=== PATIENT | female | born 1970 | race Caucasian/White ===

== ENCOUNTER 2016-07-23 12:06 | Inpatient (IN) | payer OTHER ==
--- NOTE | ~2016-07-23 | DS ---
Unit #: [id number] #: [id number] Patient: CAROL KEBEDE [id number] [place] [address] [id number] I MR#: [id number] NAME: CAROL KEBEDE ROOM: P179 Age: 45 Sex: F Admission Date: 07/23/2016 : 1970 Discharge Date: 07/25/2016 Attending Physician: Gm Quintanilla M.D. Primary Care Physician: Generic Doctor Not In System DISCHARGE SUMMARY REASON FOR ADMISSION Carol is a 45-year-old woman with a history of bipolar disorder and polysubstance dependence. She reported running out of her medication and had overused a prescription of hydrocodone. She also has a history of pseudoseizures, which she presented in the emergency room. She was unable to contract for safety and admitted for stabilization. DIAGNOSTIC STUDIES LABORATORY RESULTS: Beta-hCG was negative. CMP was clinically unremarkable. CBC demonstrated high eosinophils of 15.4%. HOSPITAL COURSE Carol was admitted and placed on suicide precautions. Seroquel 400 mg at bedtime was restarted together with lamotrigine, meloxicam, benzoate, and lidocaine patch. Her pain medicine was discontinued. The patient was somewhat labile and quite med seeking while on the unit, with several episodes of pseudoseizure activity. She did not require seizure precautions. She participated briefly in psychotherapy groups and activities. On the date of discharge, she reported a "family emergency" related to her boyfriend and was able to contract for safety. DISCHARGE DIAGNOSES AXIS I: Bipolar depressed, F31.4; opioid dependence; polysubstance dependence. AXIS II: Borderline personality disorder. AXIS III: Hepatitis C. AXIS IV: AXIS V: DISCHARGE INSTRUCTIONS The patient to follow up with the [facility]. DISCHARGE MEDICATIONS Lamictal 100 mg daily for mood stability, Seroquel 400 mg at bedtime for mood stability, trazodone 50 mg at bedtime as needed for insomnia, Neurontin 600 mg t.i.d. for anxiety. Other medications were meloxicam 50 mg daily for pain and benzoate to completion for an infection. CONDITION AT DISCHARGE Fair. PROGNOSIS Unit #: [id number] #: [id number] Patient: CAROL KEBEDE Jossue. DIET AND ACTIVITY Per primary care doctor. Dictated by... Kamron Irvin/shani TD: 07/26/2016 03:43 JOB #: [id number] DISCHARGE SUMMARY Page 1 of 1 X Gm Quintanilla MD X DISCHARGE SUMMARY
--- NOTE | ~2016-07-23 | HP ---
Unit #: [id number] #: [id number] Patient: CAROL KEBEDE [id number] [place] [address] [id number] I MR#: [id number] NAME: CAROL KEBEDE ROOM: P179 Age: 45 Sex: F Admission Date: 07/23/2016 : 1970 Attending Physician: Gm Quintanilla M.D. Admitting Physician: Gm Quintanilla M.D. Primary Care Physician: Tk Doctor Not In System HISTORY AND PHYSICAL History and physical completed on 07/23/2016. HISTORY OF PRESENT ILLNESS Carol is a 45-year-old female, admitted to [facility] on 07/23/2016 for suicidal ideation and detox from opiates. PAST MEDICAL HISTORY Hepatitis C. PAST SURGICAL HISTORY None. SOCIAL HISTORY She smokes one half pack of cigarettes daily. She has a history of alcohol and drug abuse; however, she denies this for the past several months. She has been taking hydrocodone 5 mg t.i.d. She is currently single and living with her fiance and ex-. FAMILY MEDICAL HISTORY Noncontributory. REVIEW OF SYSTEMS CONSTITUTIONAL: No fever or chills. HEENT: Denies any sore throat, ear pain or runny nose. CARDIOVASCULAR: Denies chest pain, irregular heart rhythm or palpitations. CHEST: Denies shortness of breath or cough. No hemoptysis. GASTROINTESTINAL: Denies nausea, vomiting, diarrhea or chronic constipation. ENDOCRINE: Denies history of increased thirst or urination. No recent significant weight loss or gain. GENITOURINARY: Denies dysuria, frequency, or hematuria. SKIN: Denies any rashes. HEMATOLOGIC: Denies history of increased bleeding or bruising. MUSCULOSKELETAL: Denies any hot, swollen joints. No generalized muscle pain. NEUROLOGIC: Denies problems with vision or speech. No frequent, severe headaches. No numbness, tingling or weakness in any extremities. Denies loss of bladder or bowel control. CURRENT MEDICATIONS 1. Lamictal 2. Meloxicam 3. Lidocaine patch Unit #: [id number] #: [id number] Patient: CAROL KEBEDE 4. Benzonatate ALLERGIES Ceftin. PHYSICAL EXAMINATION GENERAL: Alert, oriented, and in no acute distress. VITAL SIGNS: Blood pressure 120/78, heart rate 105, respirations 18, and temperature 97.3. SKIN: Warm and dry without rash or lesion. HEENT: Normocephalic. TMs not viewed. Oral and nasal passages clear. Conjunctivae clear. PERRLA. EOMs intact. NECK: Supple without lymphadenopathy or thyromegaly. HEART: Regular rate and rhythm without murmur. LUNGS: Clear. ABDOMEN: Soft, nontender. : Not done. EXTREMITIES: No evidence of cyanosis, clubbing or edema. Moves all without focal deficit. NEUROLOGICAL: Grossly within normal limits. Cranial Nerves: II: Visual coker are intact. III, IV AND : Extraocular movements are intact. Pupils are equal, round and reactive to light. V: Facial sensation is grossly normal. VII: Facial movements and expression are normal. VIII: Auditory acuity grossly intact. IX, X: Uvula is midline. Phonation is normal. XI: Patient shrugs shoulders and turns head normally. XII: Tongue protrudes in the midline. Sensory and Motor Function: Sensory and motor sensation is grossly normal. Motor: moves all extremities well. Coordination: Gait is normal. Deep Tendon Reflexes: Intact. IMPRESSION 1. Psychiatric admission. 2. Hepatitis C. RECOMMENDATIONS Psychiatric, per psychiatrist. MEDICAL I see no contraindications to participating in facility's activities. MEDICAL PROGNOSIS Good. MEDICAL CONDITION Stable. Dictated by... Roni Whittaker TD: 07/24/2016 08:44 JOB #: [id number] Unit #: [id number] #: [id number] Patient: CAROL KEBEDE HISTORY AND PHYSICAL X DAIANA CAMPBELL APRN HISTORY AND PHYSICAL
--- NOTE | ~2016-07-23 | PA ---
Unit #: [id number] #: [id number] Patient: CAROL VAZQUEZ [id number] [place] [address] [id number] I MR#: [id number] NAME: CAROL VAZQUEZ ROOM: P179 Age: 45 Sex: F Admission Date: 07/23/2016 : 1970 Date of Assessment: 07/23/2016 Attending Physician: Gm Quintanilla M.D. Admitting Physician: Gm Quintanilla M.D. Primary Care Physician: Generic Doctor Not In System PSYCHIATRIC ASSESSMENT DATE OF SERVICE 07/23/2016. INFORMANTS The patient, partially reliable and OLOP, reliable. CHIEF COMPLAINT Suicidal ideation. HISTORY OF PRESENT ILLNESS Carol Vazquez is a 45-year-old woman with a history of polysubstance dependence and bipolar disorder. She has apparently run out of hydrocodone after recently filling the prescription, and upon presentation, she reported suicidal ideation and voluntarily, "seizure" in the assessment center, which was quickly determined to be non-medical in origin. The patient was unable to contract for safety and was admitted, pending availability of a bed. Later that morning, the patient demanded to leave, now denies she was suicidal, but later returned to the hospital repeating her previous claim of suicidality. She was admitted due to her mental instability. PAST PSYCHIATRIC HISTORY Last admission was in 12/2015. She has a diagnosis of bipolar disorder, borderline personality disorder, and polysubstance dependence. FAMILY PSYCHIATRIC HISTORY None reported. SOCIAL HISTORY Please see previous admission for details of the patient's long-term social history. She is currently homeless and erratically employed. PAST MEDICAL HISTORY Significant for hepatitis C, irritable bowel syndrome, and partial deafness. MEDICATIONS The patient has been off her medications for some time. She reports taking Neurontin, Celexa, Vistaril, and Seroquel in the past. ALLERGIES Ceftin. Unit #: [id number] #: [id number] Patient: CAROL VAZQUEZ SUBSTANCE ABUSE HISTORY The patient has a long history of abusing benzodiazepines, opioids, alcohol, and methamphetamines. MENTAL STATUS EXAMINATION The patient presented as a disheveled woman, who appeared older than her stated age. Vital signs were temperature 98.5, pulse 80, respirations 18, and blood pressure 125/75. Her speech was spontaneous and easily understood. Musculoskeletal examination was calm. Her mood was labile with a congruent affect. She was alert and fully oriented. Memory and concentration were fair. Thought processes were goal directed with no active psychosis. She reported suicidal ideation with multiple plans and could not contract for safety outside of the hospital. Insight and judgment, fair. Fund of knowledge and abstraction, fair. ASSETS AND LIABILITIES The patient knows local resources and is presenting voluntarily for treatment. Liabilities include unstable mental state and lack of compliance with medication and ongoing drug use. ADMITTING DIAGNOSES AXIS I: Bipolar depressed, F31.4; opioid dependence; and polysubstance dependence. AXIS II: Borderline personality disorder. AXIS III: Hepatitis C. AXIS IV: AXIS V: PSYCHIATRIC PLAN The patient was admitted and placed on suicide precautions. We will restart Seroquel 400 mg at bedtime and titrate upwards as well as the suicide precautions and opioid detox protocol. Lamotrigine 100 mg daily, meloxicam 15 mg daily, benzoate to completion per the ER and lidocaine patch will also be restarted for treatment of various conditions. She will enroll in dual diagnosis groups and activities. TREATMENT GOALS Resolution of SI, improvement in insight, and improvement in coping skills. DISCHARGE PLANNING Follow up with [facility]. ESTIMATED LENGTH OF STAY 5 days. Dictated by... Gm Quintanilla M.D. LUPE/shani TD: 07/23/2016 19:44 JOB #: [id number] Unit #: [id number] #: [id number] Patient: CAROL VAZQUEZ PSYCHIATRIC ASSESSMENT X Gm Quintanilla MD X PSYCHIATRIC ASSESSMENT
--- NOTE | ~2016-07-23 | PN ---
Unit #: [id number] #: [id number] Patient: CAROL KEBEDE [id number] [facility] [address] [place] [address] [id number] I MR#: [id number] NAME: CAROL KEBEDE ROOM: P179 Age: 45 Sex: F Admission Date: 07/23/2016 : 1970 Attending Physician: Gm Quintanilla M.D. Admitting Physician: Gm Quintanilla M.D. Primary Care Physician: Generic Doctor Not In System [facility] PROGRESS NOTES DATE 07/24/2016 DISCUSSION Carol continues to be anxious with a labile and unstable mood. She has active detox symptoms today including large muscle group cramping. She is alert and fully oriented. Memory and concentration are only fair. Thought processes are logical with some lability. She has ongoing SI. She also complains of hunger and of insufficient nicotine replacement. ASSESSMENT 1. Bipolar, mixed. 2. Opiate dependence. PLAN Will provide Flexeril for muscle cramping, increase portion size, and increase strength her nicotine patch. Dictated by... Gm Quintanilla M.D. /kin TD: 07/25/2016 22:13 JOB #: [id number] [facility] PROGRESS NOTES Page 1 of 1 X Gm Quintanilla MD PROGRESS NOTE
[~2016-07-23 12:06] MED LIST: AMITRYPTYLINE PO; AMOXICILLIN PO; CELEXA20 MG PO; HYDROCODON-ACE1 EAC7 PO; NEURONTIN600 MG PO; SEROQUEL PO; VOLTAREN75 MG PO
[2016-07-24 09:25] LABS: BASOPHIL# 0.1 X10e3 (0-0.3); EOSINOPHIL# 1.5 X10e3 (0-0.7); EOSINOPHIL% 15.4 % (0.0-7.0); HEMATOCRIT 40.7 % (35.0-45.0); HEMOGLOBIN 13.3 gm/dL (12.0-16.0); LYMPHOCYTE% 41.1 % (17.0-45.0); MEAN CELL VOLUME 89.8 FL (83-96); MEAN CORPUSCULAR HEMOGLOBIN 29.4 PG (28-34); MEAN CORPUSCULAR HGB CONC 32.8 g/dL (30-36); MEAN PLATELET VOLUME 8.1 FL (6.5-11.5); MONOCYTE# 1.1 X10e3 (0-1.0); NEUTROPHIL% 31.5 % (40-75); PLATELET COUNT 317 X10e3 (140-420); RED BLOOD COUNT 4.53 X10e (3.90-5.30); RED CELL DISTRIBUTION WIDTH 13.7 % (11.0-15.5); WHITE BLOOD COUNT 9.7 X10e3 (4.0-10.5)
[2016-07-24 09:29] LABS: DIFF IND NO
[2016-07-24 10:07] LABS: ALBUMIN SERUM 3.4 g/dL (3.5-5.0); ALKALINE PHOSPHATASE 69 U/L (32-92); ALT (SGPT) 21 U/L (10-40); AST (SGOT) 19 U/L (10-42); BILIRUBIN,TOTAL 0.4 mg/dL (0.2-2.0); BLOOD UREA NITROGEN 14 mg/dL (9-23); CALCIUM SERUM 9.6 mg/dL (8.4-10.2); CARBON DIOXIDE 27 mmol/L (22-31); CHLORIDE 108 mmol/L (100-111); CREATININE SERUM 0.8 mg/dL (0.6-1.4); GLOM FILT RATE Estimated ABOVE60 mL/min (>60); GLUCOSE FASTING 92 mg/dL (70-110); POTASSIUM 4.8 mmol/L (3.5-5.1); PROTEIN TOTAL SERUM 6.4 g/dL (6.0-8.3); SODIUM 139 mmol/L (135-145)
[2016-07-25 10:11] LABS: AMPHETAMINE NEG (NEG); BARBITURATES NEG (NEG); BENZODIAZEPINES POS (NEG); COCAINE NEG (NEG); MARIJUANA POS (NEG); OPIATES POS (NEG); TRICYCLIC ANTIDEPRESSANTS POS (NEG); U METHADONE NEG (NEG)
== END 2016-07-25 13:20 | DRG 885 ==
LOC: P1E 12:06 → POF 20:57 → P1E 20:58
PROVIDERS: Psychiatry & Neurology Psychiatry
PROC: HZ2ZZZZ Detoxification Services for Substance Abuse Treatment (ICD-10-PCS; principal; 2016-07-23)
DX: F31.30 Bipolar disorder, current episode depressed, mild or moderate severity, unspecified (principal); F11.20 Opioid dependence, uncomplicated; R45.851 Suicidal ideations; F60.3 Borderline personality disorder; F17.210 Nicotine dependence, cigarettes, uncomplicated; Z88.1 Allergy status to other antibiotic agents
CPT/HCPCS: 80053; 80307; 84703; 85025

== ENCOUNTER 2016-07-26 21:20 | Emergency (ER) | payer OTHER | END 2016-07-26 22:25 | disposition home or self-care (01) | LOC: CED 21:20 | DX: T40.1X1A Poisoning by heroin, accidental (unintentional), initial encounter (principal); Z90.49 Acquired absence of other specified parts of digestive tract; F17.210 Nicotine dependence, cigarettes, uncomplicated; Z88.8 Allergy status to other drugs, medicaments and biological substances | CPT/HCPCS: 36415; 96374; 99283; J2310 ==

== ENCOUNTER 2016-08-09 19:24 | Inpatient (IN) | payer OTHER ==
--- NOTE | ~2016-08-09 | HP ---
Unit #: [id number] #: [id number] Patient: CAROL KEBEDE [id number] [place] [address] [id number] I MR#: [id number] NAME: CAROL KEBEDE ROOM: P212 Age: 45 Sex: F Admission Date: 08/09/2016 : 1970 Attending Physician: Gm Quintanilla M.D. Admitting Physician: Gm Quintanilla M.D. Primary Care Physician: Primary Care Physician No HISTORY AND PHYSICAL Carol is a 45 year old who was admitted and discharged within the first 24 hours. She was not seen for an H and P. Dictated by... Elodia Elizalde P.A.-C. for Kamron Malin/kin TD: 08/10/2016 18:37 JOB #: [id number] HISTORY AND PHYSICAL Page 1 of 1 X Elodia Elizalde X HISTORY AND PHYSICAL
[2016-08-10 09:44] LABS: BASOPHIL# 0.1 X10e3 (0-0.3); BASOPHIL% 0.7 % (0-2.5); EOSINOPHIL# 0.9 X10e3 (0-0.7); HEMATOCRIT 38.8 % (35.0-45.0); HEMOGLOBIN 12.6 gm/dL (12.0-16.0); LYMPHOCYTE# 2.7 X10e3 (1.0-3.5); LYMPHOCYTE% 26.8 % (17.0-45.0); MEAN CELL VOLUME 90.6 FL (83-96); MEAN CORPUSCULAR HEMOGLOBIN 29.3 PG (28-34); MEAN CORPUSCULAR HGB CONC 32.4 g/dL (30-36); MONOCYTE% 10.2 % (3.0-12.0); NEUTROPHIL# 5.4 X10e3 (1.5-7.1); NEUTROPHIL% 53.3 % (40-75); PLATELET COUNT 377 X10e3 (140-420); RED BLOOD COUNT 4.29 X10e (3.90-5.30); RED CELL DISTRIBUTION WIDTH 14.2 % (11.0-15.5); WHITE BLOOD COUNT 10.2 X10e3 (4.0-10.5)
[2016-08-10 10:18] LABS: ALBUMIN SERUM 3.1 g/dL (3.5-5.0); BILIRUBIN,TOTAL 0.3 mg/dL (0.2-2.0); BUN/CREATININE RATIO 18.33; CREATININE SERUM 0.6 mg/dL (0.6-1.4); GLOM FILT RATE Estimated 110.9 mL/min (>60); POTASSIUM 4.7 mmol/L (3.5-5.1); PROTEIN TOTAL SERUM 5.9 g/dL (6.0-8.3)
[2016-08-10 10:23] LABS: DIFF IND NO
[2016-08-11 10:40] LABS: AMPHETAMINE NEG (NEG); BARBITURATES NEG (NEG); BENZODIAZEPINES NEG (NEG); COCAINE NEG (NEG); MARIJUANA POS (NEG); OPIATES POS (NEG); TRICYCLIC ANTIDEPRESSANTS POS (NEG); U METHADONE NEG (NEG)
== END 2016-08-10 18:14 | DRG 885 ==
LOC: P2S 19:24
PROVIDERS: Psychiatry & Neurology Psychiatry
DX: F31.9 Bipolar disorder, unspecified (principal)
CPT/HCPCS: 80053; 80307; 84703; 85025

== ENCOUNTER 2016-12-11 22:19 | Inpatient (IN) | payer OTHER ==
[~2016-12-11] VITALS: Ht 160 cm; Wt 55.3 kg
--- NOTE | ~2016-12-11 | DS ---
Unit #: [id number] #: [id number] Patient: CAROL KEBEDE [id number] [place] [address] [id number] I MR#: [id number] NAME: CAROL KEBEDE ROOM: [facility] Age: 46 Sex: F Admission Date: 12/11/2016 : 1970 Discharge Date: 12/13/2016 Attending Physician: Gm Quintanilla M.D. Primary Care Physician: Primary Care Physician No DISCHARGE SUMMARY REASON FOR ADMISSION Carol is a 46-year-old woman, who came in reporting SI and decompensation after being deprived of her previous medications. She was unable to contract for safety and was admitted for stabilization. DIAGNOSTIC STUDIES LABORATORY RESULTS: CBC and CMP were generally within normal limits. HOSPITAL COURSE The patient was admitted and placed on suicide precautions. Her home medications were restarted. She had a brief hospital course with no additional suicidal ideation or evidence of response to internal stimuli. On the date of discharge, she says she "thinks I'm fine" and asked for discharge with followup through her outpatient provider. She was also asking for prescriptions for all of her medications, and I suspect that her partial goal when coming to the hospital was to continue with her outpatient treatment, which had lapsed. DISCHARGE DIAGNOSES AXIS I: Bipolar depressed; polysubstance dependence. AXIS II: Borderline personality disorder. AXIS III: History of hepatitis C, recurrent urinary tract infection. AXIS IV: AXIS V: DISCHARGE INSTRUCTIONS Follow up with PCP and neurologist of choice. The patient was also referred to community mental health. DISCHARGE MEDICATIONS Keppra 1000 mg b.i.d. for seizures, lamotrigine 100 mg daily for mood stability, Neurontin 800 mg t.i.d. for seizures, Seroquel 400 mg at bedtime for mood stability, Cleocin 300 mg t.i.d. until gone for UTI, trazodone 50 mg at bedtime as needed for insomnia. CONDITION AT DISCHARGE Improved. PROGNOSIS Fair. DIET AND ACTIVITY Unit #: [id number] #: [id number] Patient: CAROL KEBEDE Per primary care doctor. Dictated by... Gm Quintanilla M.D. [facility]/shani TD: 12/13/2016 18:43 JOB #: [id number] DISCHARGE SUMMARY Page 1 of 1 X Gm Quintanilla MD DISCHARGE SUMMARY
--- NOTE | ~2016-12-11 | HP ---
Unit #: [id number] #: [id number] Patient: CAROL KEBEDE [id number] [place] [address] [id number] I MR#: [id number] NAME: CAROL KEBEDE ROOM: P122 Age: 46 Sex: F Admission Date: 12/11/2016 : 1970 Attending Physician: Gm Quintanilla M.D. Admitting Physician: Gm Quintanilla M.D. Primary Care Physician: Primary Care Physician No HISTORY AND PHYSICAL HISTORY OF PRESENT ILLNESS Carol is a 46 year old admitted to [address] [place] [address] with depression and verbalizing wanting to hurt herself. PAST MEDICAL HISTORY 1. Long history of illicit substance abuse to include IV heroin. 2. Hepatitis C. 3. History of IBS. 4. COPD. 5. History of pseudoseizures. PAST SURGICAL HISTORY 1. Cholecystectomy. 2. Tubal ligation. ALLERGIES Ceftin. SOCIAL HISTORY Smokes one pack per day. Denies alcohol. Admits to a long history of illicit drugs use to include IV heroin. FAMILY HISTORY Medically noncontributory. REVIEW OF SYSTEMS CONSTITUTIONAL: No fever or chills. HEENT: Denies any sore throat, ear pain or runny nose. CARDIOVASCULAR: Denies chest pain, irregular heart rhythm or palpitations. CHEST: Denies shortness of breath or cough. No hemoptysis. GASTROINTESTINAL: Denies nausea, vomiting, diarrhea or chronic constipation. ENDOCRINE: Denies history of increased thirst or urination. No recent significant weight loss or gain. GENITOURINARY: Denies dysuria, frequency, or hematuria. SKIN: Denies any rashes. HEMATOLOGIC: Denies history of increased bleeding or bruising. MUSCULOSKELETAL: Denies any hot, swollen joints. No generalized muscle pain. NEUROLOGIC: Denies problems with vision or speech. No frequent, severe headaches. No numbness, tingling or weakness in any extremities. Denies loss of bladder or bowel control. Unit #: [id number] #: [id number] Patient: CAROL KEBEDE CURRENT MEDICATIONS 1. Nicotine patch 21 mg q day 2. Keppra 1000 mg b.i.d. 3. Lamictal 100 mg q day 4. Milk of Magnesia p.r.n. 5. Maalox p.r.n. 6. Tylenol p.r.n. 7. Desyrel 50 mg q.h.s. p.r.n. 8. Neurontin 800 mg t.i.d. 9. Cleocin 300 mg t.i.d. 10. Seroquel 400 mg q.h.s. PHYSICAL EXAMINATION GENERAL: Alert, well-nourished, in no apparent distress. VITAL SIGNS: Blood pressure 128/80, heart rate 60, respirations 16, temperature 98.6. WEIGHT: 122 pounds. HEIGHT: 5 foot 3 inches. SKIN: Warm and dry without rash or lesion. HEENT: Normocephalic. TMs not viewed. Oral and nasal passages clear. Conjunctivae clear. Pupils equal, round and reactive to light and accommodation. Extraocular movements intact. NECK: Supple without lymphadenopathy or thyromegaly. HEART: Regular rate and rhythm without murmur. LUNGS: Clear. ABDOMEN: Soft, nontender. : Not done. EXTREMITIES: No evidence of cyanosis, clubbing or edema. Moves all extremities without focal deficit. NEUROLOGICAL: Grossly within normal limits. Cranial Nerves: II: Visual coker are intact. III, IV AND : Extraocular movements are intact. Pupils are equal, round and reactive to light. V: Facial sensation is grossly normal. VII: Facial movements and expression are normal. VIII: Auditory acuity grossly intact. IX, X: Uvula is midline. Phonation is normal. XI: Patient shrugs shoulders and turns head normally. XII: Tongue protrudes in the midline. Sensory and Motor Function: Sensory and motor sensation is grossly normal. Motor: moves all extremities well. Coordination: Gait is normal. Deep Tendon Reflexes: Intact. IMPRESSION Psychiatric admission. RECOMMENDATIONS PSYCHIATRIC: Per psychiatrist. MEDICAL: I see no contraindications to participating in facility's activities. MEDICAL PROGNOSIS Good. MEDICAL CONDITION Stable. Unit #: [id number] #: [id number] Patient: CAROL KEBEDE Dictated by... Elodia Elizalde P.A.-C. for Kamron Malin/satish TD: 12/12/2016 21:03 JOB #: [id number] HISTORY AND PHYSICAL Page 1 of 1 X Elodia Elizalde X HISTORY AND PHYSICAL
--- NOTE | ~2016-12-11 | PA ---
Unit #: [id number] #: [id number] Patient: CAROL VAZQUEZ [id number] [place] [address] [id number] I MR#: [id number] NAME: CAROL VAZQUEZ ROOM: [facility] Age: 46 Sex: F Admission Date: 12/11/2016 : 1970 Date of Assessment: 12/12/2016 Attending Physician: Gm Quintanilla M.D. Admitting Physician: Gm Quintanilla M.D. Primary Care Physician: Primary Care Physician No PSYCHIATRIC ASSESSMENT DATE OF SERVICE 12/12/2016. INFORMANTS The patient, reliable and OLOP, reliable. CHIEF COMPLAINT "I'm suicidal". HISTORY OF PRESENT ILLNESS Carol Vazquez is a 46-year-old woman with a history of bipolar disorder and polysubstance dependence. She reports multiple difficulties obtaining her medications and says she cannot get a neurologist despite the fact that her seizures are "out of control." These have been diagnosed in the past as psychogenic in nature. She also reported auditory hallucinations and was unable to contract for safety. She was readmitted for further stabilization and treatment. PAST PSYCHIATRIC HISTORY Last admission to this facility was in July of this year with long-term hospitalizations at other facilities. She has a diagnosis of bipolar disorder, borderline personality disorder, and polysubstance dependence. FAMILY PSYCHIATRIC HISTORY None reported. SOCIAL HISTORY The patient is erratically homeless and is currently staying with her boyfriend. She has a history of erratic employment and is currently unemployed. PAST MEDICAL HISTORY Hepatitis C, irritable bowel syndrome, partial deafness, and psychogenic seizures. MEDICATIONS History of taking Neurontin, Seroquel, Vistaril, and Celexa. ALLERGIES Ceftin. SUBSTANCE ABUSE HISTORY The patient has a long history of abusing benzodiazepines, opioids, Unit #: [id number] #: [id number] Patient: CAROL VAZQUEZ alcohol, and methamphetamines. MENTAL STATUS EXAMINATION The patient presented as a disheveled woman, appearing older than her stated age. Her speech was sparse, but easily understood. Musculoskeletal examination was calm. Her mood was labile with a congruent affect. She was alert and fully oriented. Her memory and concentration were intact. Her thought processes were goal directed and there was no evidence of response to internal stimuli. She reported suicidal ideation with multiple plans and could not contract for safety outside of the hospital. Insight and judgment were fair. Fund of knowledge and abstraction were fair to good. ASSETS AND LIABILITIES The patient knows local resources and presents voluntarily for treatment. Liabilities include unstable mental state and her erratic compliance. ADMITTING DIAGNOSES AXIS I: Bipolar depressed, F31.4; opioid dependence; and polysubstance dependence. AXIS II: Borderline personality disorder. AXIS III: Hepatitis C. AXIS IV: AXIS V: PSYCHIATRIC PLAN The patient was admitted and placed on suicide precautions. Her home medications will be reviewed and restarted as appropriate. Cleocin will also be continued from the emergency room for urinary tract infection. She will enroll in dual diagnosis groups and activities and a physical examination and laboratory studies will be ordered and reviewed. TREATMENT GOALS Resolution of SI, stabilization of mood, improvement in insight, and improvement in coping skills. DISCHARGE PLANNING Follow up with [facility]. ESTIMATED LENGTH OF STAY 5 days. Dictated by... Gm Quintanilla M.D. LUPE/shani TD: 12/13/2016 17:33 JOB #: [id number] Unit #: [id number] #: [id number] Patient: CAROL VAZQUEZ PSYCHIATRIC ASSESSMENT Page 1 of 1 X Gm Quintanilla MD X PSYCHIATRIC ASSESSMENT
[2016-12-13 12:26] LABS: BASOPHIL# 0.1 X10e3 (0-0.3); BASOPHIL% 1.3 % (0-2.5); EOSINOPHIL# 0.4 X10e3 (0-0.7); EOSINOPHIL% 4.7 % (0.0-7.0); HEMATOCRIT 40.7 % (35.0-45.0); HEMOGLOBIN 13.7 gm/dL (12.0-16.0); LYMPHOCYTE# 3.4 X10e3 (1.0-3.5); LYMPHOCYTE% 37.6 % (17.0-45.0); MEAN CORPUSCULAR HGB CONC 33.7 g/dL (30-36); MONOCYTE# 0.8 X10e3 (0-1.0); NEUTROPHIL# 4.3 X10e3 (1.5-7.1); NEUTROPHIL% 47.4 % (40-75); PLATELET COUNT 265 X10e3 (140-420); RED BLOOD COUNT 4.42 X10e (3.90-5.30); RED CELL DISTRIBUTION WIDTH 14.9 % (11.0-15.5)
[2016-12-13 12:27] LABS: DIFF IND NO
[2016-12-13 12:40] LABS: ALBUMIN SERUM 3.5 g/dL (3.5-5.0); BILIRUBIN,TOTAL 0.6 mg/dL (0.2-2.0); BUN/CREATININE RATIO 13.33; CALCIUM SERUM 9.1 mg/dL (8.4-10.2); CREATININE SERUM 0.6 mg/dL (0.6-1.4); GLOM FILT RATE Estimated 110.1 mL/min (>60); POTASSIUM 4.5 mmol/L (3.5-5.1); PROTEIN TOTAL SERUM 6.6 g/dL (6.0-8.3)
== END 2016-12-13 12:40 | disposition home or self-care (01) | DRG 885 ==
LOC: P1S 23:36
PROVIDERS: Psychiatry & Neurology Psychiatry
DX: F31.4 Bipolar disorder, current episode depressed, severe, without psychotic features (principal); F11.20 Opioid dependence, uncomplicated; N39.0 Urinary tract infection, site not specified; F60.3 Borderline personality disorder; B19.20 Unspecified viral hepatitis C without hepatic coma; G40.909 Epilepsy, unspecified, not intractable, without status epilepticus; J44.9 Chronic obstructive pulmonary disease, unspecified; Z98.51 Tubal ligation status; Z90.49 Acquired absence of other specified parts of digestive tract; F17.210 Nicotine dependence, cigarettes, uncomplicated; K58.9 Irritable bowel syndrome, unspecified
CPT/HCPCS: 80053; 85025